=== PATIENT | male | born 1960 | race Caucasian/White ===

== ENCOUNTER 2020-04-24 00:50 | Outpatient (CLI) | payer OTHER, SELFPAY ==
[2020-04-24 18:31] LABS: SARS-CoV-2 RNA PCR Negative
== END 2020-04-24 00:51 | disposition home or self-care (01) ==
LOC: ANHCOVIDDT 00:51
PROVIDERS: PCP Internal Medicine; Visit Provider Internal Medicine Gastroenterology
DX: Z01.812 Encounter for preprocedural laboratory examination (principal); Z20.828 Contact with and (suspected) exposure to other viral communicable diseases
CPT/HCPCS: 87635; C9803; U0003

== ENCOUNTER 2020-04-27 00:20 | Day surgery (SDC) | payer OTHER, SELFPAY ==
[2020-04-20 14:57] VITALS: BMI 33.7
[2020-04-27 06:23] VITALS: BP 144/110; PULSE 117; RESP 20; TEMP 36.4; O2SAT 98
[2020-04-27] MEDS: LACTATED RINGERS 1,000 ML 150 ML IV CONT (06:37)
--- NOTE | 2020-04-27 07:15 | WPDANESEPPF ---
Anes - Initial Pre Proc Eval Procedure: Operation Date: 04/27/20 07:30 Proposed Procedures p Screening Colonoscopy - Geovany Chamberlain MD Date/Time: 04/27/20 07:15 Surgeon: Geovany Chamberlain MD Pre Op Diagnosis: Neoplasm Screening Patient Data Age: 60 Gender: M Height: 6 ft 3 in Weight: 121 kg Last Vital Signs Temp 97.6 F 04/27/20 06:23 Pulse 117 H 04/27/20 06:23 Resp 20 04/27/20 06:23 BP 144/110 H 04/27/20 06:23 Pulse Ox 98 04/27/20 06:23 Allergies Allergy/AdvReac Type Severity Reaction Status Date / Time No Known Allergies Allergy Verified 04/27/20 06:22 Home Medications Medication Instructions Recorded Confirmed Type Jakub Back and Body 2 tablet PO DAILY PRN 05/30/19 04/20/20 History diclofenac sodium 50 mg PO BID 05/30/19 04/20/20 History metoprolol succinate 50 mg PO QAM 05/30/19 04/20/20 History omeprazole 40 mg PO QAM 05/30/19 04/20/20 History Patient hx anesthesia problems: none Family hx anesthesia problems: none PMFSH Past Medical History Medical History Contact with and (suspected) exposure to environmental tobacco smoke (acute) (chronic) Degenerative arthritis GERD (gastroesophageal reflux disease) Hypertension Social History Social History Smoking packs per day: 1 Smoking cigarettes per day: 20.0 Years smoked: 30 Smoking pack-years: 30.00 Smoking status: Current every day smoker Tobacco type: cigarettes Alcohol intake: current Drinks per week: 12 Substance use: never Substance use type: does not use Living arrangements: with family Gender identity (if verbalized by the patient): Male Spiritual care concerns: No Anes - Eval Final PreProcedure Day of Procedure 04/27/20 07:15 Patient weight: obese Heart: regular rate and rhythm Lungs: clear to auscultation Airway: Mallampati scale class III Neurological: alert and oriented Last oral intake: >/= 8 hours ASA classification: III Emergent: no Anesthetic plan: proceed Anesthesia type and monitoring: general GIVS and standard monitoring Informed Consent: The patient's anesthetic plan and its attendant risks and benefits were discussed with the patient/family/POA. Questions were solicited and answers provided to the satisfaction of the patient/family/POA.
--- NOTE | 2020-04-27 07:31 | PM.HPGS ---
History of Present Illness History of Present Illness Consent: Risks, benefits, and alternatives have been discussed and questions answered. Patient agrees to proceed with procedure. Chief complaint: Neoplasm Screening Narrative: Zaki Langston is a 60 year old male with large polyp removed in piece-meal 05/2019, brother with CRC Review of Systems Constitutional: Constitutional: Denies headache(s) and Denies weakness Eyes: Eyes: Denies blurry vision ENT: Reports Normal hearing present, Denies headache(s) and Denies neck pain Cardiovascular: Cardiovascular: Denies chest pain and Denies dyspnea Respiratory: Respiratory: Denies dyspnea Gastrointestinal: Gastrointestinal: Reports no additional gastrointestinal complaints Genitourinary: Genitourinary: Denies dysuria Musculoskeletal: Musculoskeletal: Denies neck pain Integumentary/Breasts: Skin/Breast: Denies dry skin Neurologic: Reports Normal hearing present, Denies headache(s) and Denies weakness Psychiatric: Psychiatric: Denies anxiety Endocrine: Endocrine: Denies change in body appearance Hematologic/Lymphatic: Hematologic/Lymphatic: Denies easy bleeding Allergic/Immunologic: Allergic/Immunologic: Denies urticaria PMFSH Past Medical History Medical History (Updated 04/27/20 @ 07:32 by Geovany Chamberlain MD) Adenomatous colon polyp Contact with and (suspected) exposure to environmental tobacco smoke (acute) (chronic) Degenerative arthritis GERD (gastroesophageal reflux disease) Hypertension Social History Social History Smoking packs per day: 1 Smoking cigarettes per day: 20.0 Years smoked: 30 Smoking pack-years: 30.00 Smoking status: Current every day smoker Tobacco type: cigarettes Alcohol intake: current Drinks per week: 12 Substance use: never Substance use type: does not use Living arrangements: with family Gender identity (if verbalized by the patient): Male Spiritual care concerns: No Meds Home Medications and Allergies Home Medications Medication Instructions Recorded Confirmed Type Jakub Back and Body 2 tablet PO DAILY PRN 05/30/19 04/20/20 History diclofenac sodium 50 mg PO BID 05/30/19 04/20/20 History metoprolol succinate 50 mg PO QAM 05/30/19 04/20/20 History omeprazole 40 mg PO QAM 05/30/19 04/20/20 History Allergies Allergy/AdvReac Type Severity Reaction Status Date / Time No Known Allergies Allergy Verified 04/27/20 06:22 Vital Signs Vital Signs - 24 hr 04/27/20 06:23 Temperature 97.6 F Pulse Rate 117 H Respiratory Rate 20 Blood Pressure 144/110 H Pulse Oximetry 98 Exam Const: General: comfortable and no acute distress HENMT: General nose exam: Normal nares present Eyes: General: appearance normal, both eyes and all related structures Neck: Neck: no JVD Resp: Auscultation: clear to auscultation bilaterally Cardio: Rate: regular rate Rhythm: regular rhythm GI: Inspection: non-distended GI Palp: Yes Soft to palpation Skin: General skin exam: normal color Neuro: General: gait normal Speech: normal speech Extrem: General: normal to inspection Psych: Mental Status: mental status grossly normal Assessment and Plan Assessment and plan (1) Adenomatous colon polyp: Code(s): D12.6 - Benign neoplasm of colon, unspecified Status: Acute Assessment and Plan: will proceed with colonoscopy
[2020-04-27 07:55] VITALS: BP 114/79; PULSE 87; RESP 18; O2SAT 98
[2020-04-27 08:05] VITALS: BP 117/85; PULSE 69; RESP 17; O2SAT 99
[2020-04-27 08:15] VITALS: BP 121/91; PULSE 71; RESP 24; O2SAT 100
== END 2020-04-27 08:30 | disposition home or self-care (01) ==
PROVIDERS: PCP Internal Medicine; Visit Provider Internal Medicine Gastroenterology
PROC: 0DJD8ZZ Inspection of Lower Intestinal Tract, Via Natural or Artificial Opening Endoscopic (ICD-10-PCS; CPT 45378; principal; 2020-04-27 07:30)
DX: Z12.11 Encounter for screening for malignant neoplasm of colon (principal); D12.5 Benign neoplasm of sigmoid colon; K63.5 Polyp of colon; K57.30 Diverticulosis of large intestine without perforation or abscess without bleeding; K64.8 Other hemorrhoids; Z80.0 Family history of malignant neoplasm of digestive organs; I10 Essential (primary) hypertension; K21.9 Gastro-esophageal reflux disease without esophagitis; F17.210 Nicotine dependence, cigarettes, uncomplicated; E66.9 Obesity, unspecified; Z68.33 Body mass index [BMI] 33.0-33.9, adult
CPT/HCPCS: 45380; 87635; 88305; C9803; J2704; J7120; U0003

== ENCOUNTER 2023-05-14 01:16 | Day surgery (SDC) | payer BC, SELFPAY ==
[2023-04-30 14:17] VITALS: BMI 36.6
--- NOTE | 2023-05-11 09:29 | SUR.PREOP ---
Patient called regarding upcoming procedure. Reviewed preop instructions, appointment times, and procedure prep.
[2023-05-14 07:55] VITALS: BP 143/105; PULSE 94; RESP 18; TEMP 35.7; O2SAT 96; BMI 37.6
[2023-05-14] MEDS: LACTATED RINGERS 1,000 ML 150 ML IV CONT (08:18)
--- NOTE | 2023-05-14 08:36 | WPDANESEPPF ---
Anes - Initial Pre Proc Eval Procedure: Operation Date: 05/14/23 09:00 Proposed Procedures p Colonoscopy - Geovany Chamberlain MD Date/Time: 05/14/23 08:36 Surgeon: Geovany Chamberlain MD Pre Op Diagnosis: hx of colon polyps Patient Data Age: 63 Gender: M Height: 1.93 m Weight: 140.4 kg Last Vital Signs Temp 35.7 C L 05/14/23 07:55 Pulse 94 05/14/23 07:55 Resp 18 05/14/23 07:55 BP 143/105 H 05/14/23 07:55 Pulse Ox 96 05/14/23 07:55 O2 Del Method Room Air 05/14/23 07:55 Allergies Allergy/AdvReac Type Severity Reaction Status Date / Time No Known Allergies Allergy Verified 05/14/23 08:01 Home Medications Medication Instructions Recorded Confirmed Type aspirin-caffeine 500 mg-32.5 mg 2 tablet PO DAILY PRN Pain 05/30/19 05/14/23 History tablet (Jakub Back and Body) diclofenac sodium 50 mg 50 mg PO DAILY 05/30/19 05/14/23 History tablet,delayed release metoprolol succinate 50 mg 50 mg PO QAM 05/30/19 05/14/23 History tablet,extended release 24 hr omeprazole 40 mg capsule,delayed 40 mg PO QAM 05/30/19 05/14/23 History release amoxicillin 875 mg-potassium 1 tablet PO DAILY 04/30/23 05/14/23 History clavulanate 125 mg tablet cabergoline 0.5 mg tablet See Rx Instructions .Route .COMPLEX 04/30/23 05/14/23 History pregabalin 75 mg capsule 150 mg PO BID 04/30/23 05/14/23 History rosuvastatin 10 mg tablet 10 mg PO DAILY 04/30/23 05/14/23 History sildenafil 100 mg tablet 100 mg PO DAILY PRN Sexual Activity 04/30/23 05/14/23 History Patient hx anesthesia problems: none Family hx anesthesia problems: other (awakened during colonoscopy) Results Review: All pre-operative results and documents have been reviewed as part of the pre-operative evaluation. [facility]LY [facility] Past Medical History Medical History Adenomatous colon polyp Contact with and (suspected) exposure to environmental tobacco smoke (acute) (chronic) Degenerative arthritis GERD (gastroesophageal reflux disease) Hypertension Social History Social History Smoking packs per day: 1 Smoking cigarettes per day: 20.0 Years smoked: 30 Smoking pack-years: 30.00 Smoking status: Never smoker Tobacco type: cigarettes Alcohol intake: current Drinks per week: 8 Substance use: never Substance use type: does not use Living arrangements: alone Gender identity (if verbalized by the patient): Male Spiritual care concerns: No Anes - Eval Final PreProcedure Day of Procedure 05/14/23 08:36 Patient weight: obese Heart: regular rate and rhythm Lungs: decreased breath sounds Airway: Mallampati scale class III Neurological: alert and oriented Last oral intake: >/= 8 hours ASA classification: III Emergent: no Anesthetic plan: proceed Anesthesia type and monitoring: general GIVS and standard monitoring Results Review: All pre-operative results and documents have been reviewed as part of the pre-operative evaluation. Informed Consent: The patient's anesthetic plan and its attendant risks and benefits were discussed with the patient/family/POA. Questions were solicited and answers provided to the satisfaction of the patient/family/POA.
--- NOTE | 2023-05-14 08:52 | PM.HPGS ---
History of Present Illness History of Present Illness Consent: Risks, benefits, and alternatives have been discussed and questions answered. Patient agrees to proceed with procedure. Chief complaint: hx of colon polyps Narrative: Zaki Langston is a 63 year old male with colon polyp in 2020, brother had colon cancer Review of Systems Constitutional: Constitutional: Denies headache(s) and Denies weakness Eyes: Eyes: Denies blurry vision ENT: Reports Normal hearing present, Denies headache(s) and Denies neck pain Cardiovascular: Cardiovascular: Denies chest pain and Denies dyspnea Respiratory: Respiratory: Denies dyspnea Gastrointestinal: Gastrointestinal: Reports no additional gastrointestinal complaints Genitourinary: Genitourinary: Denies dysuria Musculoskeletal: Musculoskeletal: Denies neck pain Integumentary/Breasts: Skin/Breast: Denies dry skin Neurologic: Reports Normal hearing present, Denies headache(s) and Denies weakness Psychiatric: Psychiatric: Denies anxiety Endocrine: Endocrine: Denies change in body appearance Hematologic/Lymphatic: Hematologic/Lymphatic: Denies easy bleeding Allergic/Immunologic: Allergic/Immunologic: Denies urticaria PMFSH Past Medical History Medical History Adenomatous colon polyp Contact with and (suspected) exposure to environmental tobacco smoke (acute) (chronic) Degenerative arthritis GERD (gastroesophageal reflux disease) Hypertension Social History Social History Smoking packs per day: 1 Smoking cigarettes per day: 20.0 Years smoked: 30 Smoking pack-years: 30.00 Smoking status: Never smoker Tobacco type: cigarettes Alcohol intake: current Drinks per week: 8 Substance use: never Substance use type: does not use Living arrangements: alone Gender identity (if verbalized by the patient): Male Spiritual care concerns: No Meds Home Medications and Allergies Home Medications Medication Instructions Recorded Confirmed Type aspirin-caffeine 500 mg-32.5 mg 2 tablet PO DAILY PRN Pain 05/30/19 05/14/23 History tablet (Jakub Back and Body) diclofenac sodium 50 mg 50 mg PO DAILY 05/30/19 05/14/23 History tablet,delayed release metoprolol succinate 50 mg 50 mg PO QAM 05/30/19 05/14/23 History tablet,extended release 24 hr omeprazole 40 mg capsule,delayed 40 mg PO QAM 05/30/19 05/14/23 History release amoxicillin 875 mg-potassium 1 tablet PO DAILY 04/30/23 05/14/23 History clavulanate 125 mg tablet cabergoline 0.5 mg tablet See Rx Instructions .Route .COMPLEX 04/30/23 05/14/23 History pregabalin 75 mg capsule 150 mg PO BID 04/30/23 05/14/23 History rosuvastatin 10 mg tablet 10 mg PO DAILY 04/30/23 05/14/23 History sildenafil 100 mg tablet 100 mg PO DAILY PRN Sexual Activity 04/30/23 05/14/23 History Allergies Allergy/AdvReac Type Severity Reaction Status Date / Time No Known Allergies Allergy Verified 05/14/23 08:01 Vital Signs Vital Signs - 24 hr 05/14/23 07:55 Temperature 96.2 F L Pulse Rate 94 Respiratory Rate 18 Blood Pressure 143/105 H Pulse Oximetry 96 Oxygen Delivery Room Air Exam Const: General: comfortable and no acute distress HENMT: Face/Nose/Sinus: Normal nares present Eyes: General: appearance normal, both eyes and all related structures Neck: Neck: no JVD Resp: Auscultation: clear to auscultation bilaterally Cardio: Rate: regular rate Rhythm: regular rhythm GI: Inspection: non-distended GI Palp: Yes Soft to palpation Skin: General skin exam: normal color Neuro: General: gait normal Speech: normal speech Extrem: General: normal to inspection Psych: Mental Status: mental status grossly normal Assessment and Plan Assessment and plan (1) Adenomatous colon polyp: Code(s): D12.6 - Benign neoplasm of colon, unspecified Status: Acu
[2023-05-14 09:11] VITALS: BP 105/60; PULSE 75; RESP 16; O2SAT 99
[2023-05-14 09:21] VITALS: BP 123/80; PULSE 74; RESP 22; O2SAT 100
[2023-05-14 09:31] VITALS: BP 120/70; PULSE 72; RESP 24; O2SAT 100
== END 2023-05-14 09:35 | disposition home or self-care (01) ==
PROVIDERS: PCP Internal Medicine; Visit Provider Internal Medicine Gastroenterology
PROC: 0DJD8ZZ Inspection of Lower Intestinal Tract, Via Natural or Artificial Opening Endoscopic (ICD-10-PCS; CPT 45378; principal; 2023-05-14 09:00)
DX: Z12.11 Encounter for screening for malignant neoplasm of colon (principal); K57.30 Diverticulosis of large intestine without perforation or abscess without bleeding; Z86.010 Personal history of colon polyps; Z80.0 Family history of malignant neoplasm of digestive organs; K21.9 Gastro-esophageal reflux disease without esophagitis; I10 Essential (primary) hypertension; E66.9 Obesity, unspecified; Z68.37 Body mass index [BMI] 37.0-37.9, adult
CPT/HCPCS: 45378; J2704; J7120

== ENCOUNTER 2023-08-01 10:14 | Outpatient (CLI) | payer BC, SELFPAY ==
--- NOTE | ~2023-08-01 | CT_ITS ---
CT Scan of the Chest without Contrast: Clinical Indication: Lung cancer screening, tobacco history Technique: Contiguous sections were acquired throughout the chest without intravenous contrast. Dose reduction technique was used on this scan by utilizing automated exposure control and iterative recon struction technique. The dose-length product (DLP) was 335.40 mGy-cm. Findings: There is no evidence of any significant mediastinal, hilar or axillary lymphadenopathy. Calcified lef t hilar lymph nodes are present. The mediastinal soft tissues otherwise appear normal. There is no evidence of pleural or pericardial effusion. 3 mm nodule present along the right major fissure. Calcified left upper lobe granuloma present. Images through the upper abdomen reveal no abnormalities. Impression: Lung RADS 2: Benign appearance. 12 month follow-up screening CT advised. Reviewed, dictated and finalized at [facility]. ON INFORMATION SPECIALIST Impression: Lung RADS 2: Benign appearance. 12 month follow-up screening CT advised.
== END 2023-08-01 10:15 ==
LOC: GOSHIMG 10:15
PROVIDERS: PCP Internal Medicine; Visit Provider Internal Medicine
DX: Z12.2 Encounter for screening for malignant neoplasm of respiratory organs (principal); Z87.891 Personal history of nicotine dependence
CPT/HCPCS: 71271

== ENCOUNTER 2024-06-17 12:55 | Outpatient (CLI) | payer BC, SELFPAY ==
--- NOTE | ~2024-06-17 | CT_ITS ---
Non-contrast Head CT History: Dizziness Technique: Axial non-contrast imaging of the brain was performed. Dose reduction technique was used on this scan by utilizing automated exposure control and iterative reconstruction technique. The dose -length product (DLP) was 674.51 mGy-cm. Findings: There is no evidence of intracranial hemorrhage, mass lesion, or acute infarct. Brain par enchyma appears normal. The ventricles and subarachnoid spaces are normal in size. The calvarium ap pears normal. The visualized paranasal sinuses and mastoid air cells are clear. Impression: No significant abnormality seen. Reviewed, dictated and finalized at location . F LABORER Impression: No significant abnormality seen.
== END 2024-06-17 12:56 | disposition home or self-care (01) ==
LOC: MICIMG 12:56
PROVIDERS: PCP Internal Medicine
DX: R42 Dizziness and giddiness (principal)
CPT/HCPCS: 70450

== ENCOUNTER 2024-08-11 09:53 | Outpatient (CLI) | payer MEDICARE, BC, SELFPAY ==
--- NOTE | ~2024-08-11 | CT_ITS ---
CT Scan of the Chest without Contrast: Clinical Indication: Lung cancer screening, nicotine dependence Technique: Contiguous sections were acquired throughout the chest without intravenous contrast. Dose reduction technique was used on this scan by utilizing automated exposure control and iterative recon struction technique. The dose-length product (DLP) was 378.69 mGy-cm. COMPARISON: 08/01/2023 Findings: There is no evidence of any significant mediastinal, hilar or axillary lymphadenopathy. Calcified lef t hilar lymph nodes are present. Coronary artery calcifications present. There is no evidence of pleural or pericardial effusion. . Calcified granulomas are present. There is ill-defined groundglass opacity in the left upper lobe ( axial image 61), suggestive of focal pneumonitis. Images through the upper abdomen reveal no abnormalities. Impression: BI-RADS 2-S: Benign appearance. 12 month follow-up screening CT advised. Ill-defined groundglass opacity left lower lobe, suspicious for focal pneumonitis. Consider short-ter m follow-up CT to assess for resolution, if indicated. Reviewed, dictated and finalized at location M. Impression: BI-RADS 2-S: Benign appearance. 12 month follow-up screening CT advised. Ill-defined groundglass opacity left lower lobe, suspicious for focal pneumonit is. Consider short-term follow-up CT to assess for resolution, if indicated.
== END 2024-08-11 09:54 | disposition home or self-care (01) ==
LOC: MICIMG 09:55
PROVIDERS: PCP Internal Medicine; Visit Provider Nurse Practitioner Adult Health
DX: Z12.2 Encounter for screening for malignant neoplasm of respiratory organs (principal); R91.8 Other nonspecific abnormal finding of lung field; F17.210 Nicotine dependence, cigarettes, uncomplicated
CPT/HCPCS: 71271